=== PATIENT | female | born 1950 | race Hispanic/Latino ===

== ENCOUNTER 2022-05-29 06:05 | Day surgery (SDC) | payer MEDICARE ==
[2022-05-29] VITALS (19 sets, daily range): BP systolic 75–148; BP diastolic 33–89
[~2022-05-29] VITALS: Ht 154.9 cm; Wt 68.0 kg
[~2022-05-29 06:05] MED LIST: ACET325T51 PO; CLON0.1T PO; HYDR-4154 PO; LOSA50TA64 PO; MELA5TAB14 PO; MIDO5TAB4 PO; MINO10TA3 PO; NITR0.4T50 SL; SEVE800T7 PO; SIME80TA12 PO; VITAMIN D PO
[2022-05-29] MEDS ORDERED: 0.9%NACL 1000ML 1,000 ML IV ONE (06:36)
[2022-05-29] MEDS ORDERED: PROPOFOL 10 MG/ML 20ML VIAL IV ONE ×2 (07:13)
[2022-05-29] MEDS ORDERED: SUCCINYLCHOLINE 200MG/10ML SYR ONE (07:45)
[2022-05-29] MEDS ORDERED: FENTANYL CITRATE PF 50 MCG/1 ML 2ML VIAL ONE (07:57)
[2022-05-29] MEDS ORDERED: LEVOFLOXACIN 500 MG/D5W 100 ML 100 ML ONE (08:12)
[2022-05-29] MEDS ORDERED: ONDANSETRON 4MG INJ ONE (09:05)
== END 2022-05-29 10:40 | disposition home or self-care (01) ==
LOC: DAH 06:05 → ENDO 06:05
PROVIDERS: ATTEND Internal Medicine Gastroenterology
DX: K86.2 Cyst of pancreas (principal); K74.69 Other cirrhosis of liver; I85.10 Secondary esophageal varices without bleeding; K76.6 Portal hypertension; K31.89 Other diseases of stomach and duodenum; R97.0 Elevated carcinoembryonic antigen [CEA]; I25.10 Atherosclerotic heart disease of native coronary artery without angina pectoris; E11.22 Type 2 diabetes mellitus with diabetic chronic kidney disease; I12.0 Hypertensive chronic kidney disease with stage 5 chronic kidney disease or end stage renal disease; N18.6 End stage renal disease; Z90.49 Acquired absence of other specified parts of digestive tract; Z98.890 Other specified postprocedural states; Z86.73 Personal history of transient ischemic attack (TIA), and cerebral infarction without residual deficits; Z99.2 Dependence on renal dialysis; Z79.01 Long term (current) use of anticoagulants; Z79.899 Other long term (current) drug therapy
CPT/HCPCS: 87426; 43238; 82150; 84132; 82948 ×2; 36415; 43244; 82378; J3010; J0330; J1956; J7030; J2704 ×2; J2405; A4620; A4215 ×3; A4223; A4657; A4222; A4221; A4663; A4216; A4606